=== PATIENT | female | born 1975 | race Caucasian/White ===

== ENCOUNTER 2017-05-01 21:51 | Emergency (ER) | payer OTHER ==
[~2017-05-01] VITALS: Ht 177.8 cm; Wt 200.0 kg
[2017-05-01] MEDS ORDERED: IBUP-2077 PO (22:02)
[2017-05-01 22:48] VITALS: BP 119/80
== END 2017-05-01 22:54 | disposition home or self-care (01) ==
LOC: EMS 21:55
DX: M77.31 Calcaneal spur, right foot (principal)
CPT/HCPCS: 99284